=== PATIENT | female | born 2000 | race Caucasian/White ===

== ENCOUNTER 2019-01-25 11:44 | Observation (INO) | payer OTHER ==
[2019-01-25] MEDS ORDERED: Sodium Chloride 0.9% 10 ML Syringe FLUSH PRN (11:58)
[2019-01-25] MEDS ORDERED: Sodium Chloride 0.9% 1,000 ML IV ONE (12:00)
[2019-01-25] MEDS ORDERED: Ondansetron 4 MG/2 ML SDV IVPUSH ONE (12:06)
[2019-01-25] MEDS ORDERED: cefTRIAXone 2 GM Vial IVPUSH ONE (12:35)
[2019-01-25 12:39] LABS: ANION GAP 17.1 mmol/L (10-20); CHLORIDE,CL 103 mmol/L (98-107); SODIUM,NA 138 mmol/L (136-145)
[2019-01-25] MEDS ORDERED: Ibuprofen 200 MG Tab PO ONE (12:55)
[2019-01-25] MEDS ORDERED: Take Home: Doxycycline 100 MG Tab, 4 Tab Pack PO ONE (12:56)
--- NOTE | 2019-01-25 13:01 | CR ---
[id number] RAD/RAD Chest PA And Lateral EXAM: FRONTAL AND LATERAL CHEST INDICATION: Syncope and bradycardia. COMPARISON: None. DISCUSSION: Mild left base infiltrates and/or atelectasis. The right lung is clear. The heart is normal in size. IMPRESSION: 1. Mild left base infiltrates and/or atelectasis. Duke Kendall MD 01/25/19 1257 Thank you for allowing us to participate in the care of your patient.
--- NOTE | 2019-01-25 15:14 | EDM.PDOC ---
ED HPI GENERAL MEDICAL PROBLEM - General Chief Complaint: Fever Stated Complaint: ER VISIT Time Seen by Provider: 01/25/19 11:55 Source of Information: Reports: Patient History Limitations: Reports: No Limitations - History of Present Illness INITIAL COMMENTS - FREE TEXT/NARRATIVE: Pt. presents to ER with complaints of cough, fever, nausea, and vomiting. Pt. states that she has been ill for the past several days. 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 She denies any chest pain but complains of mild shortness of breath. No abdominal pain. No rashes. She denies any sore throat of sinus congestion. She states that she has vomited approx. 5 times. She denies any diarrhea. Onset Date: 01/23/19 Duration: Constant Location: Reports: Chest, Generalized Context: Reports: Sick Contact Associated Symptoms: Reports: Cough, Malaise, Nausea/Vomiting, Weakness - Related Data Allergies Allergy/AdvReac Type Severity Reaction Status Date / Time No Known Allergies Allergy Verified 01/25/19 11:58 Home Meds: Home Meds . [No Known Home Meds] 01/25/19 [History] Past Medical History - Past Health History Medical/Surgical History: Denies Medical/Surgical History Social & Family History - Tobacco Use Smoking Status *Q: Current Every Day Smoker Years of Tobacco use: 1 Packs/Tins Daily: 0.2 - Recreational Drug Use Recreational Drug Use: No ED ROS GENERAL - Review of Systems Review Of Systems: See Below Constitutional: Reports: Fever, Chills, Malaise, Fatigue HEENT: Reports: No Symptoms Respiratory: Reports: No Symptoms Cardiovascular: Reports: No Symptoms Endocrine: Reports: No Symptoms GI/Abdominal: Reports: Nausea, Vomiting : Reports: No Symptoms Musculoskeletal: Reports: No Symptoms Skin: Reports: No Symptoms Neurological: Reports: No Symptoms Psychiatric: Reports: No Symptoms Hematologic/Lymphatic: Reports: No Symptoms Immunologic: Reports: No Symptoms ED EXAM, GENERAL - Physical Exam Exam: See Below Exam Limited By: No Limitations General Appearance: Alert, WD/WN, No Apparent Distress Eye Exam: Bilateral Eye: EOMI Ears: Normal External Exam, Normal Canal, Hearing Grossly Normal, Normal TMs Ear Exam: Bilateral Ear: Auricle Normal, Canal Normal, TM normal Nose: Normal Inspection, Normal Mucosa Throat/Mouth: Normal Inspection, Normal Lips, Normal Teeth, Normal Gums, Normal Oropharynx, Normal Voice, No Airway Compromise Head: Atraumatic, Normocephalic Neck: Normal Inspection, Supple, Non-Tender, Full Range of Motion Respiratory/Chest: No Respiratory Distress, Decreased Breath Sounds, Crackles ( L base) Cardiovascular: Normal Peripheral Pulses, Regular Rate, Rhythm, No Edema, No Gallop, No JVD, No Murmur, No Rub Peripheral Pulses: 4+: Radial (L), Radial (R) GI/Abdominal: Normal Bowel Sounds, Soft, Non-Tender, No Organomegaly, No Distention, No Mass (Female) Exam: Deferred Rectal (Female) Exam: Deferred Back Exam: Normal Inspection, Full Range of Motion Extremities: Normal Inspection, Normal Range of Motion, Non-Tender, No Pedal Edema, Normal Capillary Refill Neurological: Alert, Oriented, CN II-XII Intact, Normal Cognition, Normal Gait, Normal Reflexes, No Motor/Sensory Deficits Psychiatric: Normal Affect, Normal Mood Skin Exam: Warm, Dry, Intact, Normal Color, No Rash Lymphatic: No Adenopathy Course - Vital Signs Last Recorded V/S: Last Vital Signs Temp 38.8 C H 01/25/19 12:10 Pulse 122 H 01/25/19 12:10 Resp 18 01/25/19 12:10 BP 134/59 L 01/25/19 12:10 Pulse Ox 96 01/25/19 12:10 - Orders/Labs/Meds Orders: Active Orders 24 hr Category Date Time Status CULTURE BLOOD [BC] Stat Lab 01/25/19 12:05 Received CULTURE BLOOD [BC] Stat Lab 01/25/19 12:08 Received Blood Culture x2 Reflex Set [OM.PC] Stat Oth 01/25/19 11:59 Ordered Peripheral IV Insertion Adult [OM.PC] Routine Oth 01/25/19 11:59 Ordered Labs: Laboratory Tests 01/25/19 01/25/19 01/25/19 Range/Units 12:05 12:05 12:05 WBC 14.8 H (4.0-10.0) x10^3/uL RBC 4.68 (4.00-5.50) x10^6/uL Hgb 14.2 (12.0-16.0) g/dL Hct 41.4 (33.0-47.0) % MCV 88.5 (78.0-93.0) fL MCH 30.3 (26.0-32.0) pg MCHC 34.3 (32.0-36.0) g/dL RDW Coeff of Bette 12.7 (10.0-15.0) % Plt Count 252 (130-400) x10^3/uL Neut % (Auto) 89.7 H (50.0-80.0) % Lymph % (Auto) 5.7 L (25.0-50.0) % [place] % (Auto) 4.4 (2.0-11.0) % Eos % (Auto) 0.1 (0.0-4.0) % Baso % (Auto) 0.1 L (0.2-1.2) % PT 11.0 (10.0-12.8) SEC INR 1.0 L (2.0-3.5) Sodium (136-145) mmol/L Potassium (3.5-5.1) mmol/L Chloride (98-107) mmol/L Carbon Dioxide (21-32) mmol/L Anion Gap (10-20) mmol/L BUN (7-18) mg/dL Creatinine (0.55-1.02) mg/dL Est Cr Clr Drug Dosing mL/min Estimated GFR (MDRD) Glucose (74-106) mg/dL Lactic Acid (0.4-2.0) mmol/L Calcium (8.5-10.1) mg/dL Corrected Calcium (8.5-10.1) mg/dL Phosphorus (2.6-4.7) mg/dL Magnesium (1.8-2.4) mg/dL Total Bilirubin (0.2-1.0) mg/dL AST (15-37) U/L ALT (14-59) U/L Alkaline Phosphatase (46-116) U/L C-Reactive Protein (<=0.9) mg/dL Total Protein (6.4-8.2) g/dL Albumin (3.4-5.0) g/dL Globulin Albumin/Globulin Ratio Urine Color Yellow (YELLOW) Urine Appearance Clear (CLEAR) Urine pH 7.0 (5.0-8.0) Ur Specific [place] 1.020 Urine Protein Negative (NEGATIVE) mg/dL Urine Glucose (UA) Negative (NEGATIVE) mg/dL Urine Ketones Negative (NEGATIVE) mg/dL Urine Occult Blood Small H (NEGATIVE) Urine Nitrite Negative (NEGATIVE) Urine Bilirubin Negative (NEGATIVE) Urine Urobilinogen 1.0 (0.2) EU/dL Ur Leukocyte Esterase Negative (NEGATIVE) Urine RBC 0-5 (NOT SEEN) /HPF Urine WBC Not seen (NOT SEEN) /HPF Ur Squamous Epith Cells Rare (NEGATIVE) /HPF 01/25/19 01/25/19 Range/Units 12:05 12:05 WBC (4.0-10.0) x10^3/uL RBC (4.00-5.50) x10^6/uL Hgb (12.0-16.0) g/dL Hct (33.0-47.0) % MCV (78.0-93.0) fL MCH (26.0-32.0) pg MCHC (32.0-36.0) g/dL RDW Coeff of Bette (10.0-15.0) % Plt Count (130-400) x10^3/uL Neut % (Auto) (50.0-80.0) % Lymph % (Auto) (25.0-50.0) % [place] % (Auto) (2.0-11.0) % Eos % (Auto) (0.0-4.0) % Baso % (Auto) (0.2-1.2) % PT (10.0-12.8) SEC INR (2.0-3.5) Sodium 138 (136-145) mmol/L Potassium 4.1 (3.5-5.1) mmol/L Chloride 103 (98-107) mmol/L Carbon Dioxide 22 (21-32) mmol/L Anion Gap 17.1 (10-20) mmol/L BUN 14 (7-18) mg/dL Creatinine 1.0 (0.55-1.02) mg/dL Est Cr Clr Drug Dosing 87.99 mL/min Estimated GFR (MDRD) > 60 Glucose 103 (74-106) mg/dL Lactic Acid 1.6 (0.4-2.0) mmol/L Calcium 9.2 (8.5-10.1) mg/dL Corrected Calcium 9.28 (8.5-10.1) mg/dL Phosphorus 2.1 L (2.6-4.7) mg/dL Magnesium 1.5 L (1.8-2.4) mg/dL Total Bilirubin 0.9 (0.2-1.0) mg/dL AST 24 (15-37) U/L ALT 43 (14-59) U/L Alkaline Phosphatase 129 H (46-116) U/L C-Reactive Protein 1.8 H (<=0.9) mg/dL Total Protein 7.9 (6.4-8.2) g/dL Albumin 3.9 (3.4-5.0) g/dL Globulin 4.0 Albumin/Globulin Ratio 0.98 Urine Color (YELLOW) Urine Appearance (CLEAR) Urine pH (5.0-8.0) Ur Specific [place] Urine Protein (NEGATIVE) mg/dL Urine Glucose (UA) (NEGATIVE) mg/dL Urine Ketones (NEGATIVE) mg/dL Urine Occult Blood (NEGATIVE) Urine Nitrite (NEGATIVE) Urine Bilirubin (NEGATIVE) Urine Urobilinogen (0.2) EU/dL Ur Leukocyte Esterase (NEGATIVE) Urine RBC (NOT SEEN) /HPF Urine WBC (NOT SEEN) /HPF Ur Squamous Epith Cells (NEGATIVE) /HPF Meds: Medications Discontinued Medications Generic Name Dose Route Start Last Admin Trade Name Freq PRN Reason Stop Dose Admin Ceftriaxone Sodium 2 gm 01/25/19 12:35 01/25/19 12:39 Rocephin IVPUSH 01/25/19 12:36 2 gm STAT ONE Administration Doxycycline Monohydrate 1 packet 01/25/19 12:56 Take Home: Doxycycline 100 Mg, 4 Tab Pack PO 01/25/19 12:57 ONETIME ONE Sodium Chloride 1,000 mls @ 1,000 mls/hr 01/25/19 12:00 01/25/19 12:05 Normal Saline IV 01/25/19 12:59 1,000 mls/hr .BOLUS ONE Administration Ibuprofen 600 mg 01/25/19 12:55 01/25/19 13:01 Motrin PO 01/25/19 12:56 600 mg ONETIME ONE Administration Ondansetron HCl 4 mg 01/25/19 12:06 01/25/19 12:27 Zofran IVPUSH 01/25/19 12:07 4 mg ONETIME ONE Administration Sodium Chloride 10 ml 01/25/19 11:58 Saline Flush FLUSH ASDIRECTED PRN Keep Vein Open - Radiology Interpretation Free Text/Narrative:: early L lower lobe infiltrate - Re-Assessments/Exams Free Text/Narrative Re-Assessment/Exam: 01/25/19 15:15 IV access established. Pt. was given a liter of NS at zofran 4 mg IV. She was given 2 gm of rocephin IV. She felt much better at time of discharge. Departure - Departure Time of Disposition: 13:30 Disposition: Home, Self-Care 01 Clinical Impression: Pneumonia - Discharge Information Instructions: Community-Acquired Pneumonia, Adult, [id number] Referrals: Sri Solano MD [Primary Care Provider] - Forms: ED Department Discharge Additional Instructions: Doxycycline 100mg twice daily for 10 days Drink plenty of fluids Tylenol and ibuprofen for fever/discomfort - Problem List Review Problem List Initiated/Reviewed/Updated: Yes - My Orders Last 24 Hours: My Active Orders 01/25/19 11:59 Blood Culture x2 Reflex Set [OM.PC] Stat Peripheral IV Insertion Adult [OM.PC] Routine 01/25/19 12:05 CULTURE BLOOD [BC] Stat 01/25/19 12:08 CULTURE BLOOD [BC] Stat - Assessment/Plan Last 24 Hours: My Active Orders 01/25/19 11:59 Blood Culture x2 Reflex Set [OM.PC] Stat Peripheral IV Insertion Adult [OM.PC] Routine 01/25/19 12:05 CULTURE BLOOD [BC] Stat 01/25/19 12:08 CULTURE BLOOD [BC] Stat Plan: Doxycycline 100mg twice daily for 10 days Drink plenty of fluids Tylenol and ibuprofen for fever/discomfort
[2019-01-25] MEDS ORDERED: Lactated Ringers 1,000 ML IV SCH (20:45)
[2019-01-25] MEDS ORDERED: Ondansetron 4 MG/2 ML SDV IVPUSH PRN (20:46)
[2019-01-25] MEDS ORDERED: Ketorolac 15 MG/ML SDV IVPUSH ONE (20:47)
[2019-01-25] MEDS ORDERED: NS + KCl 20mEq/L 1,000 ML IV SCH (21:00)
--- NOTE | 2019-01-25 21:02 | PCM.HP ---
H&P History of Present Illness - General Date of Service: 01/25/19 Admit Problem/Dx: Admission Diagnosis/Problem Admission Diagnosis/Problem Community acquired pneumonia Source of Information: Patient History Limitations: Reports: No Limitations - History of Present Illness Initial Comments - Free Text/Narative: Pt. was initially seen in ER this afternoon and diagnosed with community acquired pneumonia(L lower lobe). She has been experiencing fever, chills, and cough for several days. She was given IV fluids and started on rocephin and sent home with doxycycline, as she was feeling better. Pt. presents back to ER with complaints of continued fever, worsening cough, chest congestion, and headache. Decision was made to admit the patient observation, continue IV fluids , and trend labs. Chest x-ray will be repeated in the AM. Symptom Onset Date: 01/23/19 Location: Reports: Chest Associated Symptoms: Reports: Cough, Shortness of Breath - Related Data Allergies/Adverse Reactions: Allergies Allergy/AdvReac Type Severity Reaction Status Date / Time No Known Allergies Allergy Verified 01/25/19 11:58 Home Medications: Home Meds . [No Known Home Meds] 01/25/19 [History] Past Medical History - Past Health History Medical/Surgical History: Denies Medical/Surgical History Social & Family History - Tobacco Use Smoking Status *Q: Current Every Day Smoker Years of Tobacco use: 1 Packs/Tins Daily: 0.2 - Recreational Drug Use Recreational Drug Use: No H&P Review of Systems - Review of Systems: Review Of Systems: See Below General: Reports: No Symptoms HEENT: Reports: No Symptoms Pulmonary: Reports: Shortness of Breath, Pleuritic Chest Pain, Cough Cardiovascular: Reports: No Symptoms Gastrointestinal: Reports: No Symptoms Genitourinary: Reports: No Symptoms Musculoskeletal: Reports: No Symptoms Skin: Reports: Pallor Psychiatric: Reports: No Symptoms Neurological: Reports: Dizziness, Headache Hematologic/Lymphatic: Reports: No Symptoms Immunologic: Reports: No Symptoms Exam - Exam Exam: See Below - Vital Signs Vital Signs: Last Vital Signs Temp 38.8 C H 01/25/19 12:10 Pulse 122 H 01/25/19 12:10 Resp 18 01/25/19 12:10 BP 134/59 L 01/25/19 12:10 Pulse Ox 96 01/25/19 12:10 Weight: 90.718 kg - Exam General: Alert, Oriented HEENT: Conjunctiva Clear, EOMI, Hearing Intact, Mucosa Moist & [place] Neck: Supple, Trachea Midline Lungs: Decreased Breath Sounds, Crackles Cardiovascular: Regular Rate, Regular Rhythm GI/Abdominal Exam: Normal Bowel Sounds, Soft, Non-Tender, No Organomegaly, No Distention, No Abnormal Bruit, No Mass, Pelvis Stable (Female) Exam: Deferred Rectal (Female) Exam: Deferred Back Exam: Normal Inspection, Full Range of Motion Extremities: Normal Inspection, Normal Range of Motion, Non-Tender, No Pedal Edema, Normal Capillary Refill Skin: Warm, Dry, Intact Neurological: Cranial Nerves Intact, Reflexes Equal Bilateral Neuro Extensive - Mental Status: Alert, Oriented x3, Normal Mood/Affect, Normal Cognition, Memory Intact Neuro Extensive - Motor, Sensory, Reflexes: CN II-XII Intact, Normal Gait, Normal Reflexes Psychiatric: Alert, Normal Affect, Normal Mood - Patient Data Lab Results Last 24 hrs: Laboratory Results - last 24 hr 01/25/19 01/25/19 01/25/19 Range/Units 12:05 12:05 12:05 WBC 14.8 H (4.0-10.0) x10^3/uL RBC 4.68 (4.00-5.50) x10^6/uL Hgb 14.2 (12.0-16.0) g/dL Hct 41.4 (33.0-47.0) % MCV 88.5 (78.0-93.0) fL MCH 30.3 (26.0-32.0) pg MCHC 34.3 (32.0-36.0) g/dL RDW Coeff of Bette 12.7 (10.0-15.0) % Plt Count 252 (130-400) x10^3/uL Neut % (Auto) 89.7 H (50.0-80.0) % Lymph % (Auto) 5.7 L (25.0-50.0) % [place] % (Auto) 4.4 (2.0-11.0) % Eos % (Auto) 0.1 (0.0-4.0) % Baso % (Auto) 0.1 L (0.2-1.2) % PT 11.0 (10.0-12.8) SEC INR 1.0 L (2.0-3.5) Sodium (136-145) mmol/L Potassium (3.5-5.1) mmol/L Chloride (98-107) mmol/L Carbon Dioxide (21-32) mmol/L Anion Gap (10-20) mmol/L BUN (7-18) mg/dL Creatinine (0.55-1.02) mg/dL Est Cr Clr Drug Dosing mL/min Estimated GFR (MDRD) Glucose (74-106) mg/dL Lactic Acid (0.4-2.0) mmol/L Calcium (8.5-10.1) mg/dL Corrected Calcium (8.5-10.1) mg/dL Phosphorus (2.6-4.7) mg/dL Magnesium (1.8-2.4) mg/dL Total Bilirubin (0.2-1.0) mg/dL AST (15-37) U/L ALT (14-59) U/L Alkaline Phosphatase (46-116) U/L C-Reactive Protein (<=0.9) mg/dL Total Protein (6.4-8.2) g/dL Albumin (3.4-5.0) g/dL Globulin Albumin/Globulin Ratio Urine Color Yellow (YELLOW) Urine Appearance Clear (CLEAR) Urine pH 7.0 (5.0-8.0) Ur Specific [place] 1.020 Urine Protein Negative (NEGATIVE) mg/dL Urine Glucose (UA) Negative (NEGATIVE) mg/dL Urine Ketones Negative (NEGATIVE) mg/dL Urine Occult Blood Small H (NEGATIVE) Urine Nitrite Negative (NEGATIVE) Urine Bilirubin Negative (NEGATIVE) Urine Urobilinogen 1.0 (0.2) EU/dL Ur Leukocyte Esterase Negative (NEGATIVE) Urine RBC 0-5 (NOT SEEN) /HPF Urine WBC Not seen (NOT SEEN) /HPF Ur Squamous Epith Cells Rare (NEGATIVE) /HPF 01/25/19 01/25/19 Range/Units 12:05 12:05 WBC (4.0-10.0) x10^3/uL RBC (4.00-5.50) x10^6/uL Hgb (12.0-16.0) g/dL Hct (33.0-47.0) % MCV (78.0-93.0) fL MCH (26.0-32.0) pg MCHC (32.0-36.0) g/dL RDW Coeff of Bette (10.0-15.0) % Plt Count (130-400) x10^3/uL Neut % (Auto) (50.0-80.0) % Lymph % (Auto) (25.0-50.0) % [place] % (Auto) (2.0-11.0) % Eos % (Auto) (0.0-4.0) % Baso % (Auto) (0.2-1.2) % PT (10.0-12.8) SEC INR (2.0-3.5) Sodium 138 (136-145) mmol/L Potassium 4.1 (3.5-5.1) mmol/L Chloride 103 (98-107) mmol/L Carbon Dioxide 22 (21-32) mmol/L Anion Gap 17.1 (10-20) mmol/L BUN 14 (7-18) mg/dL Creatinine 1.0 (0.55-1.02) mg/dL Est Cr Clr Drug Dosing 87.99 mL/min Estimated GFR (MDRD) > 60 Glucose 103 (74-106) mg/dL Lactic Acid 1.6 (0.4-2.0) mmol/L Calcium 9.2 (8.5-10.1) mg/dL Corrected Calcium 9.28 (8.5-10.1) mg/dL Phosphorus 2.1 L (2.6-4.7) mg/dL Magnesium 1.5 L (1.8-2.4) mg/dL Total Bilirubin 0.9 (0.2-1.0) mg/dL AST 24 (15-37) U/L ALT 43 (14-59) U/L Alkaline Phosphatase 129 H (46-116) U/L C-Reactive Protein 1.8 H (<=0.9) mg/dL Total Protein 7.9 (6.4-8.2) g/dL Albumin 3.9 (3.4-5.0) g/dL Globulin 4.0 Albumin/Globulin Ratio 0.98 Urine Color (YELLOW) Urine Appearance (CLEAR) Urine pH (5.0-8.0) Ur Specific [place] Urine Protein (NEGATIVE) mg/dL Urine Glucose (UA) (NEGATIVE) mg/dL Urine Ketones (NEGATIVE) mg/dL Urine Occult Blood (NEGATIVE) Urine Nitrite (NEGATIVE) Urine Bilirubin (NEGATIVE) Urine Urobilinogen (0.2) EU/dL Ur Leukocyte Esterase (NEGATIVE) Urine RBC (NOT SEEN) /HPF Urine WBC (NOT SEEN) /HPF Ur Squamous Epith Cells (NEGATIVE) /HPF Result Diagrams: 01/25/19 12:05 01/25/19 12:05 *Q Meaningful Use (ADM) - VTE Risk Assess *Q Each Risk Factor Represents 1 Point: None Total Score 1 Point Risk Factors: 0 Each Risk Factor Represents 2 Points: None Total Score 2 Point Risk Factors: 0 Each Risk Factor Represents 3 Points: None Total Score 3 Point Risk Factors: 0 - Problem List (1) Pneumonia SNOMED Code(s): 431454903 ICD Code: J18.9 - PNEUMONIA, UNSPECIFIED ORGANISM Status: Acute Current Visit: No Qualifiers: Pneumonia type: due to unspecified organism Laterality: left Problem List Initiated/Reviewed/Updated: Yes Orders Last 24hrs: Active Orders 24 hr Category Date Time Status Patient Status [ADT] Routine ADT 01/25/19 20:31 Active Dietary Supplements [RC] BIDMEALS Care 01/25/19 20:43 Ordered Dietary Supplements [RC] BIDMEALS Care 01/25/19 20:48 Ordered Incentive Spirometry [RT Incentive Spirometry] [RC] Care 01/25/19 20:47 Ordered ASDIRECTED Intake and Output [RC] QSHIFT Care 01/25/19 20:41 Ordered Up With Assistance [RC] ASDIRECTED Care 01/25/19 20:40 Ordered VTE/DVT Education [RC] PER UNIT ROUTINE Care 01/25/19 20:41 Ordered Vital Signs [RC] Q4H Care 01/25/19 20:40 Ordered Regular Diet [DIET] Diet 01/26/19 Breakfast Ordered CBC WITH AUTO DIFF [HEME] AM Lab 01/26/19 05:11 Ordered COMPREHENSIVE METABOLIC PN,CMP [CHEM] AM Lab 01/26/19 05:11 Ordered CULTURE BLOOD [BC] Stat Lab 01/25/19 12:05 Received CULTURE BLOOD [BC] Stat Lab 01/25/19 12:08 Received LACTIC ACID [CHEM] AM Lab 01/26/19 05:11 Ordered LACTIC ACID [CHEM] Routine Lab 01/25/19 20:44 Ordered Doxycycline [Vibramycin] Med 01/25/19 20:45 Ordered 100 mg PO BID Ketorolac [Toradol] Med 01/25/19 20:47 Once 15 mg IVPUSH ONETIME ONE Lactated Ringers [Ringers, Lactated] 1,000 ml Med 01/25/19 20:45 Ordered IV ASDIRECTED Ondansetron [Zofran] Med 01/25/19 20:46 Ordered 4 mg IVPUSH Q8H PRN Sodium Chloride 0.9% with KCl 20 mEq @ 125 mL/Hr (1000 Med 01/25/19 21:00 Ordered mL) NS + KCl 20mEq/L [Normal Saline with 20 mEq KCl] 1,000 ml IV ASDIRECTED cefTRIAXone [Rocephin] Med 01/26/19 12:00 Ordered 1 gm IVPUSH DAILY Blood Culture x2 Reflex Set [OM.PC] Stat Oth 01/25/19 11:59 Ordered Peripheral IV Insertion Adult [OM.PC] Routine Oth 01/25/19 11:59 Ordered Code Status [Resuscitation Status] Routine Resus Stat 01/25/19 20:41 Ordered Medication Orders Ceftriaxone Sodium (Rocephin) 1 gm IVPUSH DAILY SOFIYA Doxycycline Hyclate (Vibramycin) 100 mg PO BID SOFIYA Lactated Ringer's (Ringers, Lactated) 1,000 mls @ 500 mls/hr IV ASDIRECTED SOFIYA Potassium Chloride/Sodium Chloride (Normal Saline With 20 Meq Kcl) 1,000 mls @ 125 mls/hr IV ASDIRECTED SOFIYA Ketorolac Tromethamine (Toradol) 15 mg IVPUSH ONETIME ONE Stop: 01/25/19 20:48 Ondansetron HCl (Zofran) 4 mg IVPUSH Q8H PRN PRN Reason: Nausea
[2019-01-25] MEDS: Doxycycline 100 MG Cap PO SCH (21:45)
[2019-01-26] MEDS ORDERED: Ibuprofen 200 MG Tab PO PRN (05:16)
[2019-01-26 07:51] LABS: CHLORIDE,CL 107 mmol/L (98-107); SODIUM,NA 140 mmol/L (136-145)
[2019-01-26 07:52] LABS: ANION GAP 12.1 mmol/L (10-20)
[2019-01-26] MEDS: Doxycycline 100 MG Cap PO SCH (08:34)
[2019-01-26] MEDS ORDERED: cefTRIAXone 1 GM Vial IVPUSH ONE (11:45)
[2019-01-26] MEDS ORDERED: cefTRIAXone 1 GM Vial IVPUSH SCH (12:00)
[2019-01-27] MEDS ORDERED: cefTRIAXone 2 GM Vial IVPUSH SCH (08:00)
== END 2019-01-26 13:00 | disposition home or self-care (01) ==
LOC: VM.ED 11:44 → VM.MS 20:31
PROVIDERS: ADMIT Physician Assistant; ATTEND Physician Assistant
DX: J18.9 Pneumonia, unspecified organism (principal); F17.210 Nicotine dependence, cigarettes, uncomplicated
CPT/HCPCS: 36415; 71046; 80053; 81001; 83605; 83735; 84100; 85025; 85610; 86140; 87040; 96361; 96374; 96375; 96376; 99285; A9270; G0378; J0696; J1885; J2405; J3480; J7030; J7120; 99284-GF